=== PATIENT | female | born 1985 | race Caucasian/White ===

== ENCOUNTER 2017-03-12 00:43 | Emergency (ER) | payer OTHER ==
[~2017-03-12] VITALS: Ht 167.6 cm; Wt 118.5 kg
[~2017-03-12 00:43] MED LIST: HYDR25SU24 PR; NAPR-260 PO
[2017-03-12 00:47] VITALS: Ht 167.6 cm; Wt 118.5 kg
[2017-03-12] MEDS ORDERED: FEXO180T61 PO (04:07)
[2017-03-12] MEDS ORDERED: HYDR-845 PO (04:07)
--- NOTE | 2017-03-12 04:31 | ERD ---
ER Documentation Chief Complaint Date/Time DATE: 03/12/17 TIME: 04:29 Chief Complaint body rash w/ itchiness x 1 month HPI . Denies any chest pain or shortness of breath this is a 31-year-old female presenting to the emergency department complaining of a rash every times her skin touches an object for the past week. Patient states that it is very itchy in the last for a few hours but then the rash comes right back. She tried Benadryl and other [id number] allergy medications without any relief. She denies any fevers. She rates this moderate to severe ROS All systems reviewed and are negative except as per history of present illness. Medications Home Meds Active Scripts Hydroxyzine Hcl* (Atarax*) 50 Mg Tab, 50 MG PO QHS, #30 TAB Prov:MARISELA WELSH PA-C 03/12/17 Fexofenadine Hcl* (Cathi*) 180 Mg Tablet, 180 MG PO DAILY, #30 TAB Prov:MARISELA WELSH PA-C 03/12/17 Naproxen* (Naprosyn*) 500 Mg Tablet, 500 MG PO BID Y for PAIN AND/OR INFLAMMATION, #30 TAB Prov:Breanna Castillo PA-C 05/30/16 Hydrocortisone Acetate* (Anusol-HC*) 25 Mg/Supp.rect Supp.rect, 1 SUPP VT BID, # 12 SUPP.RECT Prov:MANJEET HERRERA NP 08/21/15 Allergies Allergies: Coded Allergies: No Known Drug Allergy (Verified Allergy, Unknown, 04/03/09) PMhx/Soc History of Surgery: Yes (CSECTION) Anesthesia Reaction: No Hx Neurological Disorder: No Hx Respiratory Disorders: No Hx Cardiac Disorders: No Hx Psychiatric Problems: No Hx Miscellaneous Medical Probl: No Hx Alcohol Use: No Hx Substance Use: No Hx Tobacco Use: No Physical Exam Vitals Vital Signs Date Time Temp Pulse Resp B/P Pulse Ox O2 Delivery O2 Flow Rate FiO2 03/12/17 00:47 97.8 68 20 133/67 97 Physical Exam Const: [] Head: Atraumatic Eyes: Normal Conjunctiva ENT: Normal External Ears, Nose and Mouth. Neck: Full range of motion..~ No meningismus. Resp: Clear to auscultation bilaterally Cardio: Regular rate and rhythm, no murmurs Abd: Soft, non tender, non distended. Normal bowel sounds Skin: raised erythematous patches Back: No midline or flank tenderness Ext: No cyanosis, or edema Neur: Awake and alert Psych: Normal Mood and Affect Procedures/MDM This is a 31-year-old female presenting to the emergency department with signs and symptoms that are most consistent with dermographism. There is no evidence of anaphylaxis, patient's airways are intact she appears well. I discussed the patient that she will need to follow-up with scleroscope tester. Prescription for Cathi has been provided to take during the day and Atarax for nighttime. Discussed return to the ER for any worsening signs or symptoms. Patient understands and agrees with plan Departure Diagnosis: Primary Impression: Rash Condition: Stable MARISELA WELSH PA-C Mar 12, 2017 04:31
== END 2017-03-12 04:42 | disposition home or self-care (01) ==
LOC: FTE 00:43
DX: R21 Rash and other nonspecific skin eruption (principal)
CPT/HCPCS: 99283

== ENCOUNTER 2018-03-02 13:00 | Emergency (ER) | END 2018-03-02 19:32 | disposition home or self-care (01) ==

== ENCOUNTER 2018-06-28 09:42 | Outpatient (CLI) | END 2018-06-28 14:00 | disposition home or self-care (01) ==

== ENCOUNTER 2018-06-29 13:14 | Outpatient (CLI) | END 2018-06-29 14:30 | disposition home or self-care (01) ==

== ENCOUNTER 2018-08-22 13:22 | Inpatient (IN) | payer OTHER ==
[~2018-08-22] VITALS: Ht 170.2 cm; Wt 125.0 kg
[~2018-08-22 13:22] MED LIST changes: -HYDR25SU24 PR; -NAPR-260 PO; +PREN-19 PO
[2018-08-22 14:11] VITALS: BP 113/63; PULSE 93; RESP 18
[2018-08-22 14:12] VITALS: Ht 170.2 cm; Wt 125.0 kg
[2018-08-22] MEDS ORDERED: CEFAZOLIN 2 GM/50 ML (PMX) 50 ML IVPB SCH (14:30)
[2018-08-22] MEDS ORDERED: MISOPROSTOL 200 MCG TAB PR PRN (14:30)
[2018-08-22] MEDS ORDERED: OXYTOCIN 30 UNITS/LR 500 ML IV SCH (14:30)
[2018-08-22] MEDS ORDERED: METHYLERGONOVINE 0.2 MG INJ IM PRN (14:30)
[2018-08-22] MEDS ORDERED: OXYTOCIN 30 UNITS/LR 500 ML IV PRN (14:30)
[2018-08-22] MEDS ORDERED: CARBOPROST 250 MCG INJ IM PRN (14:30)
[2018-08-22] MEDS: LACTATED RINGER'S 1,000 ML IV SCH ×2 (14:37→15:59)
--- NOTE | 2018-08-22 15:45 | PREAC ---
Date/Time of Note Date/Time of Note DATE: 08/22/18 TIME: 15:43 Anesthesia Eval and Record Evaluation Time Pre-Procedure Interview DATE: 08/22/18 TIME: 15:43 Age 32 Sex female NPO: 8 hrs Preoperative diagnosis previous c section Planned procedure repeat c section Past Medical History Past Medical History: Includes GI: Obesity Surgery & Anesthesia Issues No known issue Meds Anticoagulation: No Beta Celia within 24 hr: No Reason Beta Celia not given: Pt. not on B-Celia Reported Medications Vit #76/Iron,Carb/FA (Prenatabs Rx Tablet) 1 Each Tablet, 1 EACH PO DAILY, TAB 06/28/18 Current Medications Lactated Ringer's 1,000 ml @ 125 mls/hr Q8H IV Last administered on 08/22/18at 14:37; Admin Dose 125 MLS/HR; Start 08/22/18 at 14:13 Cefazolin Sodium/ Dextrose 50 ml @ 100 mls/hr ONCE IVPB ; Start 08/22/18 at 14:30 Oxytocin/Lactated Ringer's 500 ml @ 125 mls/hr POST IV ; Start 08/22/18 at 14:30 Oxytocin/Lactated Ringer's 500 ml @ 0 mls/hr ONCE PRN IV VAGINAL BLEEDING; Start 08/22/18 at 14:30 Methylergonovine Maleate (Methergine) 0.2 mg ONCE PRN IM VAGINAL BLEEDING; Start 08/22/18 at 14:30 Carboprost Tromethamine (Hemabate) 250 mcg ONCE PRN IM VAGINAL BLEEDING; Start 08/22/18 at 14:30 Misoprostol (Cytotec) 1,000 mcg ONCE PRN MD VAGINAL BLEEDING; Start 08/22/18 at 14:30 Meds reviewed: Yes Allergies Coded Allergies: No Known Drug Allergy (Verified Allergy, Unknown, 06/29/18) Allergies Reviewed: Yes Labs/Studies Labs Reviewed: Reviewed by anesthesiologist Result Diagram: 08/22/18 1420 Laboratory Tests 08/22/18 14:20 Blood Bank Test 08/22/18 14:20 Antibody Screen POSITIVE Blood Type A NEGATIVE Rh Immune Globulin Candidate NO test: N/A Pre-procedure Exam Last vitals Vital Signs Date Temp Pulse Resp B/P (MAP) Pulse Ox O2 O2 Flow FiO2 Time Delivery Rate 08/22/18 98.6 93 18 113/63 99 Room Air 14:11 (80) Airway: Adequate mouth opening, Adequate thyromental dist Mallampati: Mallampati III Teeth: Normal Lung: Normal Heart: Normal ASA Physical Status ASA physical status: 2 Emergency: None Pre-operative Attestations Prior to commencing anesthesia and surgery, the patient was re-evaluated, there was verification of: *The patient's identity *The results of appropriate recent lab work and preoperative vital signs *The above evaluation not changing prior to induction *Anesthetic plan, risk benefits, alternative and complications discussed with patient/family; questions answered; patient/family understands, accepts and wishes to proceed. SUNDAR TERRAZAS DO Aug 22, 2018 15:45
[2018-08-22] MEDS ORDERED: FENTAnyl 50 MCG/ML VIAL ONE (17:31)
[2018-08-22] MEDS ORDERED: ONDANSETRON 4 MG INJ ONE (17:31)
[2018-08-22] MEDS ORDERED: DEXAMETHASONE 4 MG/ML 1 ML INJ ONE (17:32)
[2018-08-22] MEDS ORDERED: ESMOLOL 0 ML ONE (18:36)
[2018-08-22] MEDS ORDERED: DIPHENHYDRAMINE 50 MG INJ ONE (18:37)
[2018-08-22] MEDS ORDERED: KETOROLAC 30 MG INJ IM STA (19:01)
--- NOTE | 2018-08-22 19:01 | HP ---
Date/Time of Note Date/Time of Note DATE: 08/22/18 TIME: 18:57 OB - History Hx of Present Free Text/Dictation 32-year-old female 2 para 1 at 39 weeks gestation admitted for repeat section Last Menstrual Period: Nov 22, 2017 Estimated Due Date: Aug 29, 2018 : 2 Para: 1 Care: Good Care Ultrasounds: Normal mid trimester US Obstetrical Complications: None Medical Complications: None Past Family/Social History * Past Medical, Surgical, Family and Obstetric Histories reviewed from chart. Blood Type: A- Rubella: immune RPR/VDRL: Negative GBS Status: Negative HBsAG: Negative OB Admission Exam Vital Signs Vital Signs Vital Signs Date Temp Pulse Resp B/P (MAP) Pulse Ox O2 O2 Flow FiO2 Time Delivery Rate 08/22/18 98.6 93 18 113/63 99 Room Air 14:11 (80) Physical Exam HEENT: WNL Heart: Rhythm Normal Lungs: Clear, Equal Abdomen: WNL Extremities: Normal Reflexes: Normal Cervical Dilatation: None Effacement: 0% Station: -3 Membranes: Intact Heart Rate: 140's Accelerations: Accelerations Present Decelerations: No Decelerations Varibility: Marked Contractions on Admission: None Last 72 hours Lab Results CBC & BMP 08/22/18 14:20 OB Assessment/Plan Reason for admission: section Other Assessment: Term gestation Previous Other plan: Repeat delivery EDUARDO MENENDEZ MD Aug 22, 2018 19:01
--- NOTE | 2018-08-22 19:07 | OPR ---
Operative Report Planned Procedure Free Text/Dictation 32-year-old female admitted for repeat section at term Procedure date Aug 22, 2018 Procedure(s) His section Performed by see signature line Can Line Examiner: PAM COLIN M.D. Anesthesiologist: SUNDAR TERRAZAS DO Pre-procedure diagnosis Term gestation Previous [id number] Anesthesia Type: Urtko0u spinal Post-Procedure Post-procedure diagnosis Status post repeat Findings Live Baby Clear amniotic fluid Normal-appearing right and left fallopian tubes ovaries Estimated Blood Loss: 500 - 600 mls Specimen(s) none Grafts/Implant(s) none Complication(s) none Pt Condition post procedure: stable Disposition: PACU Procedure Description Under satisfactory anaesthesia a Pfannenstiel incision was made two fingerbreadth above and parallel to the symphysis of pubis around the previous scar and previous scar was removed Incision was extended laterally to the border of the Recti muscles on either sides. Incision was carried down with sharp and blunt dissection until fascia was reached. Anterior Recti muscle fascia was incised in mid portion and incision extended laterally to the border of skin incision. Fascia was mobilized from muscle superiorly and Recti muscles were from midline using sharp and blunt dissection. Peritoneum was visualized; Avoiding bowel and bladder it was incised . Incision was extended superiorly and inferiorly. Bladder blade was placed. Posterior peritoneum covering the lower segment of the uterus and lower segment of the uterus were incised.Low transverse uterine incision was made on lower segment of the uterus. Incision extended laterally to the border of Round Lig. on either sides and baby was delivered from OT. position . Amniotic fluid appeared clear. Cord blood was obtained and cord had 3 vessels . Placenta was delivered spontaneously and appeared intact and complete. Intrauterine cavity was rubbed with a laparotomy sponge. Uterine incision was closed in 2 layers using running stitches of No1 Monocryl. Hemostasis appeared secure. Ovaries and Fallopian tubes were within normal limits. Announcing needle, lap sponge and instrument count to be correct abdomen was closed in layers as follows: Peritoneum and Recti muscles with running stitches of 20 Vicryl. Fascia with running stitch of No 1 PDS. Subcutaneous tissue with running stitches of 20 Chromic and skin was closed using ashley. Patient tolerated the procedure well and was transferred to [facility] in good condition. EDUARDO MENENDEZ MD Aug 22, 2018 19:07
[2018-08-22] MEDS ORDERED: AZITHROMYCIN 500MG/NS (PMX) 250 ML IVPB ONE (19:30)
[2018-08-22 22:15] VITALS: BP 123/62; PULSE 104; RESP 19
[2018-08-22 22:30] VITALS: BP 120/62; PULSE 103; RESP 18
[2018-08-22] MEDS ORDERED: LACTATED RINGER'S 1,000 ML IV SCH (23:38)
[2018-08-23] VITALS: BP 120/62; PULSE 103; RESP 19
[2018-08-23] MEDS ORDERED: METHYLERGONOVINE 0.2 MG INJ IM PRN
[2018-08-23] MEDS ORDERED: HYDROCODONE/APAP (5/325) TAB PO PRN
[2018-08-23] MEDS ORDERED: NA PHOSPHATE/BIPHOS 133 ML ENEMA PR PRN
[2018-08-23] MEDS ORDERED: OXYCODONE/ACETAMINOPHEN (5/325) TAB PO PRN
[2018-08-23] MEDS ORDERED: ONDANSETRON 4 MG INJ IV PRN
[2018-08-23] MEDS ORDERED: LANOLIN HPA 1 PKT TOP PRN
[2018-08-23] MEDS ORDERED: MISOPROSTOL 200 MCG TAB PR PRN
[2018-08-23] MEDS ORDERED: CARBOPROST 250 MCG INJ IM PRN
[2018-08-23] MEDS ORDERED: OXYTOCIN 30 UNITS/LR 500 ML IV PRN
[2018-08-23] MEDS ORDERED: DIPHENHYDRAMINE 50 MG INJ IV PRN
[2018-08-23] MEDS ORDERED: ZOLPIDEM 5 MG TAB PO PRN
[2018-08-23] MEDS ORDERED: HYDROmorphONE 0.5 MG/0.5 ML SYG IV PRN ×2
[2018-08-23] MEDS ORDERED: NALOXONE (0.4 MG/ML) INJ IV PRN
[2018-08-23] MEDS: CEFAZOLIN 2 GM/50 ML (PMX) 50 ML IVPB SCH ×3 (00:27→16:25)
[2018-08-23] MEDS: CLINDAMYCIN 300 MG CAP PO SCH ×5 (00:29→23:47)
[2018-08-23] MEDS: KETOROLAC 30 MG INJ IV PRN ×2 (00:30→14:52)
[2018-08-23 04:00] VITALS: BP 99/60; PULSE 64; RESP 20
[2018-08-23] MEDS: IBUPROFEN 800 MG TAB PO SCH ×4 (06:00→21:09)
[2018-08-23 08:18] VITALS: BP 109/63; PULSE 74; RESP 20
[2018-08-23] MEDS: SENNA/DOCUSATE NA (8.6MG/50MG) TAB PO SCH ×3 (09:37→21:08)
[2018-08-23] MEDS ORDERED: BISACODYL 10 MG SUPP PR ONE (10:30)
[2018-08-23 11:23] VITALS: BP 105/57; PULSE 82; RESP 19
--- NOTE | 2018-08-23 14:28 | PN ---
Date/Time of Note Date/Time of Note DATE: 08/23/18 TIME: 14:27 Assessment/Plan VTE Prophylaxis VTE Prophylaxis Intervention: ambulation Lines/Catheters IV Catheter Type (from Nrsg): Peripheral IV Assessment/Plan Assessment/Plan Status post postop day #1 Advance diet and ambulate Continue to monitor vital signs Subjective 24 Hr Interval Summary No bowel movements but passing flatus Constitutional: no complaints, improved, ambulates, BM, flatus, urine output Pain Control: well controlled Exam/Review of Systems Vital Signs Vitals Vital Signs Date Temp Pulse Resp B/P (MAP) Pulse Ox O2 O2 Flow FiO2 Time Delivery Rate 08/23/18 98.4 82 19 105/57 97 Room Air 11:23 (73) Intake and Output 08/22/18 08/22/18 08/23/18 1515:00 23:00 07:00 IntakeIntake Total 125 ml 1550 ml OutputOutput Total 300 ml 625 ml BalanceBalance -175 ml 925 ml Exam Free Text/Dictation Abdomen is soft bowel sounds are present and abdomen does not seem distended Incision is covered Constitutional: alert, oriented, well developed Psych: no complaints, nl mood/affect Head: normocephalic, atraumatic Eyes: nl conjunctiva, EOMI, nl lids, nl sclera ENMT: nl external ears & nose, nl lips & teeth, nl nasal mucosa & septum, mucosa pink and moist Neck: supple, non-tender Respiratory: clear to auscultation, normal air movement Cardiovascular: regular rate and rhythm, nl pulses Gastrointestinal: soft, nl liver, spleen, non-tender Musculoskeletal: nl extremities to inspection, nl gait and stance Extremities: normal pulses Neurological: REPTILE KEEPER II-XII intact, nl mental status, nl speech, nl strength Skin: nl turgor, rash or lesions Lymph: nl lymph nodes Results Result Diagram: 08/23/18 0622 EDUARDO MENENDEZ MD Aug 23, 2018 14:28
[2018-08-23 16:25] VITALS: BP 101/61; PULSE 76; RESP 19
[2018-08-23 20:15] VITALS: BP 104/57; PULSE 89; RESP 18
[2018-08-24 04:00] VITALS: BP 100/63; PULSE 85; RESP 19
[2018-08-24] MEDS: CLINDAMYCIN 300 MG CAP PO SCH ×2 (06:31→12:32)
[2018-08-24] MEDS: IBUPROFEN 800 MG TAB PO SCH ×3 (06:32→21:26)
[2018-08-24 08:45] VITALS: BP 100/50; PULSE 73; RESP 18
[2018-08-24] MEDS: SENNA/DOCUSATE NA (8.6MG/50MG) TAB PO SCH ×2 (09:00→21:26)
--- NOTE | 2018-08-24 15:01 | DS ---
Date/Time of Note Date/Time of Note DATE: 08/24/18 TIME: 14:59 Discharge Summary Admission/Discharge Info Admit Date/Time Aug 22, 2018 at 13:22 Discharge Date/Time August 24 or 08/25/2018 Discharge Diagnosis Status post repeat Patient Condition: Good Procedures Repeat delivery Hx of Present Illness 32-year-old female had repeat section Hospital Course Hospital course remained uncomplicated Patient tolerated diet well and was ambulating without complications Discharge home on his second or third day with good prognosis and condition Was asked to refer to clinic on August 28, 2018 for staple removal Home Meds Reported Medications Vit #76/Iron,Carb/FA (Prenatabs Rx Tablet) 1 Each Tablet, 1 EACH PO DAILY, TAB 06/28/18 Follow-up Plan August 26, 2018 for staple removal Primary Care Provider Care Physician No Primary Time spent on discharge: > 30 minutes Pending Labs Laboratory Tests Test 08/24/18 07:10 White Blood Count 11.3 10^3/ul (4.8-10.8) Red Blood Count 3.36 10^6/ul (4.20-5.40) Hemoglobin 9.7 g/dl (12.0-16.0) Hematocrit 29.6 % (37.0-47.0) Mean Corpuscular Volume 88.1 fl (82.0-101.0) Mean Corpuscular Hemoglobin 28.9 pg (29.0-33.0) Mean Corpuscular Hemoglobin Concent 32.8 g/dl (32.0-37.0) Red Cell Distribution Width 14.4 % (11.5-14.5) Platelet Count 197 10^3/UL (140-415) Mean Platelet Volume 12.4 fl (7.4-10.4) Immature Granulocytes % 0.400 % (0.001-0.429) Neutrophils % 78.2 % (39.0-77.0) Lymphocytes % 13.4 % (15.0-51.0) Monocytes % 7.2 % (0.0-11.0) Eosinophils % 0.7 % (0.0-7.0) Basophils % 0.1 % (0.0-2.0) Nucleated Red Blood Cells % 0.0 /100WBC (0.0-0.0) Immature Granulocytes # 0.050 10^3/ul (0.0-0.031) Neutrophils # 8.8 10^3/ul (1.6-7.5) Lymphocytes # 1.5 10^3/ul (0.8-2.9) Monocytes # 0.8 10^3/ul (0.3-0.9) Eosinophils # 0.1 10^3/ul (0.0-0.5) Basophils # 0.0 10^3/ul (0.0-0.1) Nucleated Red Blood Cells # 0.0 10^3/ul (0.0-0.0) EDUARDO MENENDEZ MD Aug 24, 2018 15:01
--- NOTE | 2018-08-24 15:02 | DS ---
Date/Time of Note Date/Time of Note Home today or next day DATE: 08/24/18 TIME: 15:01 Obstetrical Discharge Record Final Diagnosis Final Diagnosis: Term delivered Other Final Diagnosis Status post repeat Section Section: Repeat Condition on Discharge Physical Assessment Last Vitals: See nurse's notes Voiding: Yes Bowel Movement: Yes Breast: Soft, non-tender, Filling Fundus: Firm Abdomen and Incision: Abdomen is soft with present bowel sounds Incision is healing well without induration Episiotomy: Not applicable Calf Tenderness: No Patient Condition: Good EDUARDO MENENDEZ MD Aug 24, 2018 15:02
--- NOTE | 2018-08-24 15:03 | PD.PPDC ---
INDEXER Discharge Instruction Provider Information Physician Information 32-year-old female had repeat Diagnosis [id number] Final Diagnosis: Hsake5j Status post repeat Condition [id number] Patient Condition: Lvhnw3q Good Diet [id number] Diet: Ycytt6c Resume Regular Diet Activity/Restrictions [id number] Activity: Hpmjs2a Normal Activity May Shower [id number] Restrictions: Lezlf5p Nothing in the Vagina [id number] Return to Work or School: Pstzk3a Oct 23, 2018 Wound/Drain Care Instructions [id number] Wound/Drain Care Instructions: Gsmox5x Keep clean and dry Follow-up Follow-up with Physician: 3, 4, Day/Days (For staple removal) Return to clinic for Ssvbc5Oz RED LEAD BURNER Instructions: Nwgjk4h Fever greater than 101 Chills [id number] OB Instructions: Gzmhl9v Breast Tenderness Depression Comment: Pelvic rest and no hard activity for 2 months Srasp8Uv Surgical Instructions: Toxpm2z Incisional Drainage Incisional Redness EDUARDO MENENDEZ MD Aug 24, 2018 15:03
[2018-08-24] MEDS ORDERED: ACET325T33 PO (15:04)
[2018-08-24] MEDS ORDERED: IBUP800T48 PO (15:04)
[2018-08-24] MEDS ORDERED: CIPR-193 PO (15:05)
[2018-08-24] MEDS: ACETAMINOPHEN 325 MG TAB PO SCH ×2 (15:26→21:27)
[2018-08-24 15:40] VITALS: BP 101/60; PULSE 82; RESP 17
[2018-08-24] MEDS: CIPROFLOXACIN 250 MG TAB PO SCH (18:25)
[2018-08-24 20:40] VITALS: BP 101/66; PULSE 78; RESP 18
[2018-08-25] MEDS: ACETAMINOPHEN 325 MG TAB PO SCH ×3 (03:09→16:48)
[2018-08-25 04:00] VITALS: BP 93/60; PULSE 64; RESP 18
[2018-08-25] MEDS: IBUPROFEN 800 MG TAB PO SCH ×2 (06:21→15:14)
[2018-08-25] MEDS: CIPROFLOXACIN 250 MG TAB PO SCH ×2 (06:21→18:33)
[2018-08-25 08:00] VITALS: BP 114/75; PULSE 80; RESP 18
[2018-08-25] MEDS ORDERED: DIPHTH/TET/ACEL PERTUSS (ADULT) 0.5 ML VIAL IM* ONE (09:00)
[2018-08-25] MEDS ORDERED: MEASLES,MUMPS,RUBELLA VACCINE INJ SC* ONE (09:00)
[2018-08-25] MEDS: SENNA/DOCUSATE NA (8.6MG/50MG) TAB PO SCH (10:06)
[2018-08-25 16:00] VITALS: BP 122/68; PULSE 72; RESP 17
== END 2018-08-25 18:00 | disposition home or self-care (01) | DRG 788 ==
LOC: L-D 13:22 → PP1 22:04
PROVIDERS: ADMIT Obstetrics & Gynecology; ATTEND Obstetrics & Gynecology
PROC: 10D00Z1 Extraction of Products of Conception, Low, Open Approach (ICD-10-PCS; principal; 2018-08-22 15:30)
DX: O34.219 Maternal care for unspecified type scar from previous cesarean delivery (principal); O99.214 Obesity complicating childbirth; Z3A.39 39 weeks gestation of pregnancy; Z37.0 Single live birth
CPT/HCPCS: 85025; 85610; 85730; 86592; 86850; 86870; 86900; 86901; 87340; 99464; J0456; J0690; J1100; J1200; J1885; J2405; J2590; J3010; J7120